=== PATIENT | female | born 1990 | race Caucasian/White ===

== ENCOUNTER 2024-10-23 19:47 | Emergency (ER) | payer OTHER, SELFPAY ==
[2024-10-23 19:52] VITALS: BP 138/109; PULSE 73; TEMP 36.6; O2SAT 97; BMI 32.7
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
[2024-10-23 20:43] VITALS: BP 138/93; PULSE 73; O2SAT 98
== END 2024-10-23 20:45 | disposition home or self-care (01) ==
PROVIDERS: Emergency Provider Emergency Medicine; PCP Nurse Practitioner Family
DX: S09.90XA Unspecified injury of head, initial encounter (principal); Y04.8XXA Assault by other bodily force, initial encounter
CPT/HCPCS: 70450; 99284